=== PATIENT | female | born 1965 | race Native Hawaiian/Other Pacific Islander ===

== ENCOUNTER 2018-04-14 10:13 | Outpatient (CLI) | payer OTHER | END 2018-04-14 19:30 | disposition home or self-care (01) | LOC: RAD 10:13 | DX: M25.561 Pain in right knee (principal) ==

== ENCOUNTER 2018-08-22 13:58 | Emergency (ER) | payer OTHER ==
[~2018-08-22] VITALS: Ht 172.7 cm; Wt 120.2 kg
[2018-08-22 14:05] VITALS: TEMP 98.2
[2018-08-22] MEDS ORDERED: NEURONTIN 100M100 MG PO (14:17)
[2018-08-22] MEDS ORDERED: LISI10TA11 PO (14:18)
[2018-08-22 16:08] VITALS: BP 166/74
== END 2018-08-22 16:08 | disposition home or self-care (01) ==
LOC: ED 13:58
DX: S96.911A Strain of unspecified muscle and tendon at ankle and foot level, right foot, initial encounter (principal); W17.89XA Other fall from one level to another, initial encounter
CPT/HCPCS: 99283; J1885

== ENCOUNTER 2019-03-19 07:40 | Observation (INO) | payer BC ==
[~2019-03-19] VITALS: Ht 175.3 cm; Wt 127.1 kg
[~2019-03-19 07:40] MED LIST: LISI10TA11 PO; NEURONTIN 100M100 MG PO
[2019-03-19 07:53] VITALS: BP 150/73; TEMP 98.1
[2019-03-19 08:12] LABS: PLATELET COUNT 213 K/uL (152-353)
[2019-03-19 11:00] VITALS: BP 138/63
[2019-03-19 16:11] VITALS: BP 132/62; TEMP 98.9; Ht 175.3 cm; Wt 127.1 kg
[2019-03-19 20:00] VITALS: BP 157/69; TEMP 101.2
[2019-03-20] VITALS: BP 112/53; TEMP 100.3
[2019-03-20 04:00] VITALS: BP 129/74; TEMP 100.1
[2019-03-20 05:20] LABS: PLATELET COUNT 167 K/uL (152-353)
[2019-03-20 05:38] LABS: POTASSIUM 3.9 mmol/L (3.6-5.2)
[2019-03-20 08:00] VITALS: BP 147/68; TEMP 98.6
--- NOTE | 2019-03-20 14:30 | NUR ---
PATIENT CALLED NURSES STATION FOR A NURSE TO COME DOWN TO HER ROOM. UPON ENTERING PATIENTS ROOM, PATIENT STATED " THE IV IN MY ARM IS HURTING", THIS NURSE ASSESSED HER RIGHT FOREARM AND FOUND CURRENT IV OUT AND INTACT 22G, ARM SLIGHTLY SWOLLEN, TENDER TO TOUCH. WARM COMPRESS PLACED ON THE FOREARM. NOTIFIED PATIENT I WOULD COME BACK AND CHECK ON HER. 1456- WHILE IN THE ICU FERMENTATION MANAGER CALLED AND STATED PATIENT WAS LEAVING AMA AND MARILYN BURGER NURSE COMING DOWN THE HATCH AND PATIENT WAS WITH FAMILY LEAVING, AND WHEN ASKING HER WHY WAS SHE LEAVING SHE STATE " I'M JUST GOING SOME WHERE ELSE", COMING BEHIND TOLD ME SHE ATTEMPTED TO TALK TO PATIENT WITH FAMILY PRESENT BUT STATED SHE WAS LEAVING. PATIENT WAS NOT IN NO ACUTE DISTRESS WHEN SHE LEFT AT THIS TIME.
== END 2019-03-20 14:50 | disposition left against medical advice (07) ==
LOC: ED 07:40 → MED/SURG 10:16
PROVIDERS: Internal Medicine; ADMIT Emergency Medicine
DX: N13.6 Pyonephrosis (principal); D72.828 Other elevated white blood cell count; K85.80 Other acute pancreatitis without necrosis or infection; E66.01 Morbid (severe) obesity due to excess calories; Z68.41 Body mass index [BMI] 40.0-44.9, adult; I10 Essential (primary) hypertension
CPT/HCPCS: 36415; 80053; 81000; 82150; 83690; 85027; 87077; 87086; 87088; 87186; 96360; 96365; 96374; 96375; 99220; 99284; G0378; J0696; J1885; J2405